=== PATIENT | male | born 1980 | race Hispanic/Latino ===

== ENCOUNTER 2018-09-10 06:54 | Outpatient (CLI) | payer BC ==
--- NOTE | 2018-09-10 21:52 | ULT ---
ULTRASOUND ABDOMEN LIMITED: (RIGHT UPPER QUADRANT) HISTORY: 38-year-old male with epigastric pain. FINDINGS: The gallbladder has normal wall thickness and has no evidence of gallstones or sludge. The hepatic e chogenicity is normal. The right kidney has normal echogenicity and has no hydronephrosis. The panc reas is visualized, although ultrasound is relatively insensitive for pancreatic pathology compared t o CT and MRI. There is no biliary dilation. The common duct caliber is 2 mm. IMPRESSION: Normal. jp [] POS: [facility]
== END 2018-09-10 06:55 | disposition home or self-care (01) ==
LOC: BICULT 06:54
PROVIDERS: ATTEND Family Medicine
DX: K25.9 Gastric ulcer, unspecified as acute or chronic, without hemorrhage or perforation (principal); R10.9 Unspecified abdominal pain
CPT/HCPCS: 76705

== ENCOUNTER 2018-10-15 11:12 | Emergency (ER) | payer BC ==
--- NOTE | 2018-10-15 12:03 | RAD ---
PA CHEST: Date: 10/15/18 HISTORY: Heart palpitations. FINDINGS: Lungs are clear. Heart and mediastinum appear normal. IMPRESSION: No acute abnormality. POS: [facility]
[2018-10-15 12:20] LABS: #Eosinphils 0.1 thou/uL (0.0-0.7); #Monocytes 0.4 thou/uL (0.11-0.59); %Basophils 0.4 % (0.0-1.0); %Eosinophils 1.8 % (0.0-10.0); %Lymphocytes 26.9 % (21.0-51.0); %Monocytes 5.2 % (0.0-10.0); %Neutrophils 65.6 % (42.0-75.0); Hemoglobin 16.3 g/dL (14.0-18.0); Mean Corpuscular Hemoglobin 30.7 pg (27.0-31.0); Mean Corpuscular Volume 90.2 fL (78.0-98.0); Mean Platelet Volume 7.5 fL (7.4-10.4); Platelet Count 296 thou/uL (130-400); RBC Distribution Width 11.3 % (11.5-14.5); Red Blood Cell (RBC) Count 5.32 mill/uL (4.70-6.10); White Blood Cell (WBC) Count 7.6 thou/uL (4.8-10.8)
[2018-10-15 12:47] LABS: ALT (SGPT) 71 U/L (8-55); AST (SGOT) 45 U/L (5-34); Albumin 4.6 g/dL (3.5-5.0); Alkaline Phosphatase 84 U/L (40-150); Anion Gap 15 mmol/L (10-20); BUN (Urea Nitrogen) 13 mg/dL (8.9-20.6); Bilirubin, Total 0.7 mg/dL (0.2-1.2); CK (CPK) 185 U/L (30-200); Calc. Creatinine Clearance 0 mL/min (70-130); Calcium 9.9 mg/dL (7.8-10.44); Carbon Dioxide 25 mmol/L (22-29); Chloride 100 mmol/L (98-107); Estimated GFR-MDRD 72; Globulin 3.2 g/dL (2.4-3.5); Glucose 115 mg/dL (70-105); Lipase 28 U/L (8-78); Potassium 4.3 mmol/L (3.5-5.1); Protein, Total 7.8 g/dL (6.0-8.3); Sodium 136 mmol/L (136-145)
[2018-10-15] MEDS ORDERED: Ondansetron ODT 4 MG TAB ONE (15:52)
== END 2018-10-15 15:55 | disposition home or self-care (01) ==
LOC: ERS 11:12
DX: R00.2 Palpitations (principal); E11.9 Type 2 diabetes mellitus without complications; I10 Essential (primary) hypertension; F41.9 Anxiety disorder, unspecified; F32.9 Major depressive disorder, single episode, unspecified
CPT/HCPCS: 36415; 71045; 80053; 82550; 83690; 84443; 84484; 85025; 93005; 94760; Q0162

== ENCOUNTER 2018-11-17 17:34 | Emergency (ER) | payer BC ==
[2018-11-17 18:44] LABS: #Eosinphils 0.2 thou/uL (0.0-0.7); #Lymphocytes 1.5 thou/uL (1.20-3.40); #Monocytes 0.5 thou/uL (0.11-0.59); %Basophils 0.6 % (0.0-1.0); %Eosinophils 2.7 % (0.0-10.0); %Lymphocytes 24.8 % (21.0-51.0); %Monocytes 7.7 % (0.0-10.0); %Neutrophils 64.3 % (42.0-75.0); Hemoglobin 15.8 g/dL (14.0-18.0); Mean Corpuscular HGB CONC 34.1 g/dL (32.0-36.0); Mean Corpuscular Hemoglobin 31.3 pg (27.0-31.0); Mean Corpuscular Volume 91.9 fL (78.0-98.0); Mean Platelet Volume 7.8 fL (7.4-10.4); Platelet Count 281 thou/uL (130-400); RBC Distribution Width 11.2 % (11.5-14.5); Red Blood Cell (RBC) Count 5.05 mill/uL (4.70-6.10); White Blood Cell (WBC) Count 6.2 thou/uL (4.8-10.8)
[2018-11-17 19:04] LABS: ALT (SGPT) 71 U/L (8-55); AST (SGOT) 52 U/L (5-34); Albumin 4.4 g/dL (3.5-5.0); Alkaline Phosphatase 86 U/L (40-150); Anion Gap 15 mmol/L (10-20); BUN (Urea Nitrogen) 11 mg/dL (8.9-20.6); Bilirubin, Total 0.6 mg/dL (0.2-1.2); Calc. Creatinine Clearance 0 mL/min (70-130); Calcium 9.7 mg/dL (7.8-10.44); Carbon Dioxide 23 mmol/L (22-29); Chloride 104 mmol/L (98-107); Estimated GFR-MDRD 79; Globulin 3.1 g/dL (2.4-3.5); Glucose 96 mg/dL (70-105); Lipase 29 U/L (8-78); Potassium 3.9 mmol/L (3.5-5.1); Protein, Total 7.5 g/dL (6.0-8.3); Sodium 138 mmol/L (136-145)
== END 2018-11-17 20:24 | disposition home or self-care (01) ==
LOC: ERS 17:34
DX: K92.2 Gastrointestinal hemorrhage, unspecified (principal); I10 Essential (primary) hypertension; E11.9 Type 2 diabetes mellitus without complications; F41.9 Anxiety disorder, unspecified; F32.9 Major depressive disorder, single episode, unspecified; Z79.84 Long term (current) use of oral hypoglycemic drugs; Z79.899 Other long term (current) drug therapy
CPT/HCPCS: 80053; 82274; 83690; 85025; 99284

== ENCOUNTER 2019-07-09 07:10 | Emergency (ER) | payer BC | END 2019-07-09 08:19 | disposition home or self-care (01) | LOC: ERS 07:10 | DX: R04.2 Hemoptysis (principal); E11.9 Type 2 diabetes mellitus without complications; I10 Essential (primary) hypertension; F41.9 Anxiety disorder, unspecified | CPT/HCPCS: 99284 ==

== ENCOUNTER 2019-07-13 20:43 | Emergency (ER) | payer BC ==
[2019-07-13] MEDS ORDERED: Ondansetron ODT 8 MG TAB ONE (21:07)
[2019-07-13 21:11] LABS: #Eosinphils 0.1 thou/uL (0.0-0.7); #Lymphocytes 1.5 thou/uL (1.20-3.40); #Monocytes 0.5 thou/uL (0.11-0.59); #Neutrophils 6.3 thou/uL (1.40-6.50); %Basophils 0.2 % (0.0-1.0); %Eosinophils 0.7 % (0.0-10.0); %Lymphocytes 17.7 % (21.0-51.0); %Monocytes 6.4 % (0.0-10.0); %Neutrophils 74.9 % (42.0-75.0); Hemoglobin 16.9 g/dL (14.0-18.0); Mean Corpuscular HGB CONC 35.8 g/dL (32.0-36.0); Mean Corpuscular Hemoglobin 32.3 pg (27.0-31.0); Mean Corpuscular Volume 90.3 fL (78.0-98.0); Mean Platelet Volume 7.6 fL (7.4-10.4); Platelet Count 314 thou/uL (130-400); RBC Distribution Width 10.9 % (11.5-14.5); Red Blood Cell (RBC) Count 5.24 mill/uL (4.70-6.10); White Blood Cell (WBC) Count 8.4 thou/uL (4.8-10.8)
[2019-07-13 21:28] LABS: ALT (SGPT) 134 U/L (8-55); AST (SGOT) 82 U/L (5-34); Albumin 4.5 g/dL (3.5-5.0); Alkaline Phosphatase 85 U/L (40-150); Anion Gap 12 mmol/L (10-20); BUN (Urea Nitrogen) 9 mg/dL (8.9-20.6); Bilirubin, Total 0.4 mg/dL (0.2-1.2); Calc. Creatinine Clearance 0 mL/min (70-130); Calcium 9.3 mg/dL (7.8-10.44); Carbon Dioxide 24 mmol/L (22-29); Chloride 103 mmol/L (98-107); Estimated GFR-MDRD 71; Globulin 3.2 g/dL (2.4-3.5); Glucose 167 mg/dL (70-105); Lipase 33 U/L (8-78); Potassium 3.2 mmol/L (3.5-5.1); Protein, Total 7.7 g/dL (6.0-8.3); Sodium 136 mmol/L (136-145)
[2019-07-13 21:29] LABS: Bilirubin Negative (Negative); Blood, Urine Negative (Negative); Clarity Clear (Clear); Glucose, Urine (Dipstick) 70 mg/dL (Negative); Leukocyte Negative Leu/uL (Negative); Nitrite Negative (Negative); Protein, Urine (Dipstick) Negative (Neg-Trace); Urobilinogen Normal mg/dL (Less than 2)
== END 2019-07-13 22:30 | disposition home or self-care (01) ==
LOC: ERS 20:43
DX: R11.2 Nausea with vomiting, unspecified (principal); E11.9 Type 2 diabetes mellitus without complications; I10 Essential (primary) hypertension; F41.9 Anxiety disorder, unspecified; F32.9 Major depressive disorder, single episode, unspecified
CPT/HCPCS: 36415; 80053; 81003; 83690; 85025; 99284

== ENCOUNTER 2019-07-21 10:35 | Emergency (ER) | payer BC ==
[2019-07-21 11:46] LABS: #Eosinphils 0.1 thou/uL (0.0-0.7); #Lymphocytes 2.4 thou/uL (1.20-3.40); #Monocytes 0.6 thou/uL (0.11-0.59); #Neutrophils 5.9 thou/uL (1.40-6.50); %Basophils 0.5 % (0.0-1.0); %Eosinophils 1.4 % (0.0-10.0); %Lymphocytes 26.3 % (21.0-51.0); %Monocytes 6.6 % (0.0-10.0); %Neutrophils 65.2 % (42.0-75.0); Hemoglobin 17.1 g/dL (14.0-18.0); Mean Corpuscular HGB CONC 36.1 g/dL (32.0-36.0); Mean Corpuscular Hemoglobin 32.5 pg (27.0-31.0); Mean Corpuscular Volume 90.1 fL (78.0-98.0); Mean Platelet Volume 8.3 fL (7.4-10.4); Platelet Count 290 thou/uL (130-400); RBC Distribution Width 10.9 % (11.5-14.5); Red Blood Cell (RBC) Count 5.27 mill/uL (4.70-6.10); White Blood Cell (WBC) Count 9.1 thou/uL (4.8-10.8)
[2019-07-21 12:16] LABS: ALT (SGPT) 78 U/L (8-55); AST (SGOT) 34 U/L (5-34); Albumin 4.7 g/dL (3.5-5.0); Alkaline Phosphatase 134 U/L (40-150); Anion Gap 12 mmol/L (10-20); BUN (Urea Nitrogen) 11 mg/dL (8.9-20.6); Bilirubin, Total 0.4 mg/dL (0.2-1.2); Calc. Creatinine Clearance 0 mL/min (70-130); Calcium 10.2 mg/dL (7.8-10.44); Carbon Dioxide 29 mmol/L (22-29); Chloride 101 mmol/L (98-107); Estimated GFR-MDRD 65; Globulin 3.2 g/dL (2.4-3.5); Glucose 194 mg/dL (70-105); Protein, Total 7.9 g/dL (6.0-8.3); Sodium 138 mmol/L (136-145)
[2019-07-21] MEDS ORDERED: Acetaminophen 325 MG TAB ONE (13:35)
== END 2019-07-21 13:41 | disposition home or self-care (01) ==
LOC: ERS 10:35
DX: I10 Essential (primary) hypertension (principal); R55 Syncope and collapse; E11.9 Type 2 diabetes mellitus without complications
CPT/HCPCS: 80053; 84484; 85025; 93005

== ENCOUNTER 2023-06-01 08:28 | Emergency (ER) | payer BC ==
[2023-06-01 09:12] LABS: #Eosinphils 0.4 thou/uL (0.0-0.7); #Monocytes 0.5 thou/uL (0.11-0.59); #Neutrophils 4.7 thou/uL (1.40-6.50); %Basophils 0.5 % (0.0-1.0); %Eosinophils 4.3 % (0.0-10.0); %Monocytes 5.6 % (0.0-10.0); %Neutrophils 54.4 % (42.0-75.0); Hemoglobin 16.3 g/dL (14.0-18.0); Mean Corpuscular HGB CONC 35.9 g/dL (32.0-36.0); Mean Corpuscular Hemoglobin 31.5 pg (27.0-31.0); Mean Corpuscular Volume 87.6 fl (78.0-98.0); Mean Platelet Volume 10.6 fL (7.4-10.4); Platelet Count 301 10x3/uL (130-400); RBC Distribution Width 11.1 % (11.5-14.5); Red Blood Cell (RBC) Count 5.18 mill/uL (4.70-6.10); White Blood Cell (WBC) Count 8.6 10x3/uL (4.8-10.8)
[2023-06-01 09:37] LABS: ALT (SGPT) 69 U/L (8-55); AST (SGOT) 39 U/L (5-34); Albumin 4.4 g/dL (3.5-5.0); Alkaline Phosphatase 100 U/L (40-110); Anion Gap 16 mmol/L (10-20); BUN (Urea Nitrogen) 11 mg/dL (8.9-20.6); Bilirubin, Total 0.3 mg/dL (0.2-1.2); Calc. Creatinine Clearance 0 mL/min (70-130); Calcium 9.2 mg/dL (7.8-10.44); Carbon Dioxide 24 mmol/L (22-29); Chloride 99 mmol/L (98-107); Estimated GFR 110; Globulin 3.1 g/dL (2.4-3.5); Glucose 151 mg/dL (70-105); Potassium 3.5 mmol/L (3.5-5.1); Protein, Total 7.5 g/dL (6.0-8.3); Sodium 135 mmol/L (136-145)
== END 2023-06-01 10:40 | disposition home or self-care (01) ==
LOC: ERS 08:28
DX: R07.89 Other chest pain (principal); I10 Essential (primary) hypertension
CPT/HCPCS: 71045; 80053; 84484; 85025; 93005; 96360